=== PATIENT | male | born 1985 | race African-American/Black ===

== ENCOUNTER 2025-02-24 16:44 | Emergency (ER) | payer SELFPAY ==
[~2025-02-24] VITALS: Ht 188 cm; Wt 97.7 kg
[2025-02-24 16:58] VITALS: BP 133/88; PULSE 95; RESP 18; TEMP 98.1; O2SAT 98
[2025-02-25] MEDS ORDERED: [UNRECOGNIZED DRUG - CODE] COLOSTOMY (09:31)
== END 2025-02-24 21:23 | disposition left against medical advice (07) ==
LOC: ER 16:45
DX: Z02.89 Encounter for other administrative examinations (principal); Z53.21 Procedure and treatment not carried out due to patient leaving prior to being seen by health care provider

== ENCOUNTER 2025-02-25 05:27 | Emergency (ER) | payer MEDICAID ==
[~2025-02-25] VITALS: Ht 188 cm; Wt 90.0 kg
[2025-02-25 05:49] VITALS: TEMP 97.8
--- NOTE | 2025-02-25 08:24 | Physician Documentation ---
History of Present Illness ~ Chief Complaint: Depression Stated Complaint: MENTAL HEALTH EVAL Time Seen by MD: 07:57 OK to notify your PCP?: Yes Source: patient, RN/MD, EMS, RN notes reviewed, EMS notes reviewed, old records Mode of Arrival: EMS Exam Limitations: no limitations HPI Patient has a very poor historian. Patient was seen at [facility] and discharge. The patient is brand new to our area from [facility]. Kathia ent is a Psychiatry patient but has not been taking meds for over a year. Patient smokes methamphetamine and states his last use was yesterday. Patient states that he was discharged from [facility]. Patient then called rest pad who then told him to come to [facility] for inpatient management. Patient is suicidal he has been suicidal for a long time has no specific plan. Patient isn't taking his medications for about a year now. Patient is a poor historian very goal directed at admission upstairs in our psych unit. Patient does not have a plan he has been suicidal but he is also using methamphetamine when he arrived to [place] 48 hours ago. When the patient was receiving referrals to [facility] for psychiatric evaluation the patient then created additional medical complaints stating that his colostomy is swollen. On exam there was no significant abnormalities. When asked for surgical history and why he has a colostomy patient's said it is irrelevant. Patient did not want to p rovide additional medical history. When we discussed discharge once again patient started demanding detox for methamphetamine which again is not admittable the patient then was demanding breakfast. He does not know his medications states it should be in the medical record. Patient appears well, healthy, without any other complaints such as fevers or chills. Medication Reconciliation Allergies: Coded Allergies: No Known Allergies (Unverified , 02/25/25) Durable Medical Equipment Colostomy Bag, Non-Sterile (Natura Drainable Pouch), BAG COLOSTOMY DAILY, (DME) Colostomy Bag, Non-Sterile (Natura Drainable Pouch), BAG COLOSTOMY DAILY, (DME) Past Medical History Past Medical History: *PSYCH* Past Surgical History: colectomy Smoking Status: Current every day smoker Alcohol Use: None Drug Use: methamphetamine Review of Systems All Other Systems at this time: Reviewed and Negative Physical Exam Vital Signs: RN Vital Signs have been reviewed: Yes, Temperature: 97.8, Source: Oral, Heart Rate: 73, Respiratory Rate: 16, BP: 127/66, Pulse Oximetry: 100, Weight: 90.000 Oxygen Flow Rate: 0 Physical Exam General: The patient is well developed, well nourished, nontoxic appearing and is in no acute distress. Skin: [place], warm and dry with no rashes. HEENT: Head was normocephalic and atraumatic. Eyes - pupils equal, round, reactive to light and accommodation. Extraocular movements were intact. Conjunctivae were nonicteric. The mouth and oropharynx were clear with moist mucous membranes. Neck: Supple and nontender. There was no jugular venous distention, lymphadenopathy, thyromegaly or masses. Chest: Clear to auscultation bilaterally without wheezes, rales or rhonchi. No accessory muscle use. No dullness to percussion. Heart: Rate regular and rhythmic. S1, S2. No murmurs. Palpation of the chest wall was normal. No rubs or thrills. Abdomen: Soft, nontender and nondistended. Positive bowel sounds. No guarding or rebound. No hepatosplenomegaly or palpable masses. Colostomy to the left lower abdomen clean no erythema no signs of swelling no signs of infection Extremities: No cyanosis, clubbing or edema. The patient moves all extremities. Pulses were equal and symmetric. Neurologic: Motor sensory grossly intact Psychologic: The patient was oriented to person, place and time. The patient demonstrated appropriate judgement and insight. Progress Progress Note Patient is being discharged but is instructed to follow up with mental health services on [facility] for treatment and medication. Results/Orders Reviewed/noted all lab results: Yes Results/Orders Vital Signs 02/25/25 02/25/25 05:49 09:51 Temp 97.8 Pulse 73 65 Resp 16 14 B/P (MAP) 127/66 124/66 Pulse Ox 100 98 O2 Flow Rate 0 Re-Evaluation Re-Evaluation : Re-Evaluation: Unchanged Progress Patient was offered medications however he is not on any of them and was not interested. Patient now was requesting colostomy bags and a prescription. I offered him psychiatric meds which he is just not interested in. Patient is a bit aggressive. Secondary gain issues. Patient was given resources and it eventually through the paperwork back at us. Medical Decision Making Additional info obtained from: old records Differential Dx:Considerations: Include: Alcohol abuse, Anxiety, Bipolar disorder, Conversion disorder, Depression, Personality disorder, Substance abuse, Suicidal, Other Departure Time of Disposition: 09:18 Disposition: 01 HOME / SELF CARE / HOMELESS Impression: Primary Impression: Depression Qualified Codes: F32.A - Depression, unspecified Additional Impressions: Colostomy care Hungry Qualified Codes: T73.0XXA - Starvation, initial encounter Condition: Stable Discharge Instructions: Depression, Adult Additional Instructions: Patient is being discharged but is instructed to follow up with mental health services on [address] for treatment and medication. Referrals: NO PRIMARY CARE PROVIDER (PCP) Prescriptions Colostomy Bag, Non-Sterile (Natura Drainable Pouch) 2 3/4" (12") Each BAG COLOSTOMY DAILY, #30 1 Refill Prov: PETR LICEA MD 02/25/25 Education Educated: Patient Educated regarding: diagnosis, treatment, prognosis, need for follow up Signature Scribe Signature: Scribed for Petr Licea MD by Danilo Sequeira . 02/25/25 09:19 Attestation: The note accurately reflects work and decisions made by me.Petr Licea MD 02/25/25 08:24 PETR LICEA MD Feb 25, 2025 08:24 DANILO DILLARD Feb 25, 2025 09:19
[2025-02-25] MEDS ORDERED: [UNRECOGNIZED DRUG - CODE] COLOSTOMY (09:31)
[2025-02-25 09:51] VITALS: BP 124/66; PULSE 65; RESP 14; O2SAT 98
== END 2025-02-25 09:53 | disposition home or self-care (01) ==
LOC: ER 05:28
DX: F32.A Depression, unspecified (principal); Z43.3 Encounter for attention to colostomy; T73.0XXA Starvation, initial encounter; F17.200 Nicotine dependence, unspecified, uncomplicated; Z90.49 Acquired absence of other specified parts of digestive tract; X58.XXXA Exposure to other specified factors, initial encounter
CPT/HCPCS: 99281; A4421

== ENCOUNTER 2025-02-26 07:25 | Emergency (ER) | payer MEDICAID ==
[~2025-02-26] VITALS: Ht 188 cm; Wt 90.8 kg
[~2025-02-26 07:25] MED LIST: [UNRECOGNIZED DRUG - CODE] COLOSTOMY
[2025-02-26 07:28] VITALS: BP 127/73; PULSE 100; RESP 16; TEMP 98; O2SAT 97
--- NOTE | 2025-02-26 07:53 | Physician Documentation ---
HPI ~ General Chief Complaint: Medication Request Stated Complaint: SUPPLIES REQUEST Time Seen by MD: 07:36 OK to notify your PCP?: Yes Primary Medical Doctor: none Source: patient, RN/MD, RN notes reviewed, old records Mode of Arrival: POV Exam Limitations: no limitations History of Present Illness HPI Comments This patient is from [facility] seen 3 times in the last three days. Seen yesterday by myself. 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 Gave many reasons as to why it was not feasible demanding a social media executive wants more supplies more care more services. Whenever the patient is given any information on services he is angry because it is not available to him immediately in front of him. He has no new medical complaints. He is much more alert from his visit yesterday where he was high on methamphetamine and trying to sleep. He is otherwise in good health has no other medical complaints at this time. Medication Reconciliation Allergies: Coded Allergies: No Known Allergies (Unverified , 02/25/25) Durable Medical Equipment Colostomy Bag, Non-Sterile (Natura Drainable Pouch), BAG COLOSTOMY DAILY, (DME) Colostomy Bag, Non-Sterile (Natura Drainable Pouch), BAG COLOSTOMY DAILY, (DME) Past Medical History Past Medical History: *PSYCH* Past Surgical History: colectomy Alcohol Use: None Drug Use: methamphetamine Review of Systems All Other Systems at this time: Reviewed and Negative Physical Exam Physical Exam Vital Signs: RN Vital Signs have been reviewed: Yes, Temperature: 98.0, Source: Oral, Heart Rate: 100, Respiratory Rate: 16, BP: 127/73, Pulse Oximetry: 97, Weight: 90.800 Oxygen Flow Rate: 0 Physical Exam General: The patient is well developed, well nourished, nontoxic appearing and is in no acute distress. Skin: [place], warm and dry with no rashes. HEENT: Head was normocephalic and atraumatic. Eyes - pupils equal, round, reactive to light and accommodation. Extraocular movements were intact. Conjunctivae were nonicteric. The mouth and oropharynx were clear with moist mucous membranes. Neck: Supple and nontender. There was no jugular venous distention, lymphadenopathy, thyromegaly or masses. Chest: Clear to auscultation bilaterally without wheezes, rales or rhonchi. No accessory muscle use. No dullness to percussion. Heart: Rate regular and rhythmic. S1, S2. No murmurs. Palpation of the chest wall was normal. No rubs or thrills. Abdomen: Soft, nontender and nondistended. Positive bowel sounds. No guarding or rebound. No hepatosplenomegaly or palpable masses. Colostomy to the left lower abdomen clean no erythema no signs of swelling no signs of infection Extremities: No cyanosis, clubbing or edema. The patient moves all extremities. Pulses were equal and symmetric. Neurologic: Motor sensory grossly intact Psychologic: The patient was oriented to person, place and time. The patient demonstrated appropriate judgement and insight. Progress Results/Orders Reviewed/noted all lab results: Yes Results/Orders Vital Signs 02/26/25 07:28 Temp 98.0 Pulse 100 Resp 16 B/P (MAP) 127/73 Pulse Ox 97 O2 Flow Rate 0 Re-Evaluation Re-Evaluation : Re-Evaluation: Improved Progress Patient is much more alert in the day prior. Patient was seen and examined. He was given reassurance. 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 There may be some logistical issues but did not call to see if his prescription was available he is demanding information being sent to a local supply store which is not available making other additional complaints not available. Charge nurse was at the bedside for 20 minutes or so explaining to the patient what I explained to him today and yesterday. Ultimately the patient was given a physical copy of a prescription so he can go to any pharmacy or supply store that he chooses. He does have emergency medical which may complicate medical supplies. Patient then through his prescription at her and walked out. We were going to give the patient colostomy supplies which was in her hands but he is literally throwing paperwork at us and we did not have the opportunity to hand him his colostomy bag. 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 Medical Decision Making Additional info obtained from: old records Differential Dx:Considerations: Include: Adverse circumstances, Economic, Psychosocial, Medical services unavail., Medication refill, Medication non- compliance, Other Departure Disposition: HOME / SELF CARE / HOMELESS Impression: Primary Impression: Colostomy care Additional Impression: General medical exam Discharge Instructions: Medical Screening Exam Referrals: NO PRIMARY CARE PROVIDER (PCP) Prescriptions Colostomy Bag, Non-Sterile (Natura Drainable Pouch) 2 3/4" (12") Each BAG COLOSTOMY DAILY, #30 1 Refill Prov: MARLEEN LICEA MD 02/26/25 Education Educated: Patient Educated regarding: diagnosis, need for follow up, other Signature Scribe Signature: Scribed no Attestation: The note accurately reflects work and decisions made by me.Marleen Licea MD 02/26/25 07:51 MARLEEN LICEA MD Feb 26, 2025 07:53
== END 2025-02-26 07:59 | disposition home or self-care (01) ==
LOC: ER 07:25
DX: Z43.3 Encounter for attention to colostomy (principal); F15.90 Other stimulant use, unspecified, uncomplicated; Z90.49 Acquired absence of other specified parts of digestive tract
CPT/HCPCS: 99281; A4421